=== PATIENT | male | born 1985 | race Caucasian/White ===

== ENCOUNTER 2016-12-07 01:06 | Emergency (ER) | payer SELFPAY ==
[~2016-12-07] VITALS: Ht 177.8 cm; Wt 101.5 kg
[2016-12-07 01:14] VITALS: BP 157/97
[2016-12-07] MEDS ORDERED: HYDROcodone/APAP 5/325 TABLET ONE (01:43)
[2016-12-07] MEDS ORDERED: HYDROcodone/APAP 5/325 TABLET PO ONE (02:00)
== END 2016-12-07 02:44 | disposition home or self-care (01) ==
LOC: ED 02:40
DX: S93.491A Sprain of other ligament of right ankle, initial encounter (principal); X50.9XXA Other and unspecified overexertion or strenuous movements or postures, initial encounter; Y93.89 Activity, other specified; Y99.8 Other external cause status; Y92.410 Unspecified street and highway as the place of occurrence of the external cause